=== PATIENT | female | born 1970 ===

== ENCOUNTER 2017-07-17 13:48 | Inpatient (IN) | payer OTHER ==
[~2017-07-17 13:48] MED LIST: COUMADIN6 MG PO; CRESTOR5 MG PO; KETO10TA2 PO; PREVACID30 M1 PO; [UNRECOGNIZED DRUG - REMARK]
[2017-07-18] MEDS ORDERED: VITAMIN B122500 MCG PO (09:58)
[2017-07-18] MEDS ORDERED: VITAMIN D-32000 UNIT PO (09:59)
[2017-07-18] MEDS ORDERED: LOVENOX40 MG/0.4 SUBCUTANEO (10:03)
== END 2017-07-22 10:07 | DRG 920 ==
LOC: OB/GYN 13:48
PROC: BW21Y0Z Computerized Tomography (CT Scan) of Abdomen and Pelvis using Other Contrast, Unenhanced and Enhanced (ICD-10-PCS; principal; 2017-07-17)
DX: N99.840 Postprocedural hematoma of a genitourinary system organ or structure following a genitourinary system procedure (principal); D68.59 Other primary thrombophilia; G61.81 Chronic inflammatory demyelinating polyneuritis; R50.82 Postprocedural fever; G89.18 Other acute postprocedural pain; Z79.01 Long term (current) use of anticoagulants; R74.8 Abnormal levels of other serum enzymes; Z90.710 Acquired absence of both cervix and uterus